=== PATIENT | female | born 1955 | race Caucasian/White ===

== ENCOUNTER 2022-12-02 07:40 | Day surgery (SDC) | payer OTHER, SELFPAY ==
[2022-12-02] MEDS: LACTATED RINGERS 1000 ML 1,000 ML 100 ML IV (06:20)
[2022-12-02 07:53] VITALS: BP 154/90; PULSE 73; RESP 16; TEMP 36.2; O2SAT 97; BMI 36.3
[2022-12-02] MEDS: SODIUM CHLORIDE 0.9 % (FLUSH) 10 ML SYRINGE IVF (08:03)
--- NOTE | 2022-12-02 09:22 | W.ANESCHARGE ---
Anesthesia Charges Start Date/Time Anesthesia Start Date: 12/02/22 Anesthesia Start Time: 10:02 Stop Date/Time Anesthesia Stop Date: 12/02/22 Anesthesia Stop Time: 10:44
[2022-12-02] MEDS: CEFAZOLIN 2 GM INJ IVP (10:12)
[2022-12-02] MEDS: BUPIVACAINE 0.25% 30 ML INJECTION (10:30)
[2022-12-02 10:40] VITALS: BP 124/72; PULSE 62; RESP 16; TEMP 36.9; O2SAT 95
[2022-12-02 10:45] VITALS: BP 120/73; PULSE 61; RESP 16; O2SAT 95
--- NOTE | 2022-12-02 10:45 | W.ANESCHARGE ---
Anesthesia Charges Start Date/Time Anesthesia Start Date: 12/02/22 Anesthesia Start Time: 10:02 Stop Date/Time Anesthesia Stop Date: 12/02/22 Anesthesia Stop Time: 10:44
--- NOTE | 2022-12-02 10:52 | PM.GSPRC ---
Operative Note Date of procedure: 12/02/22 Pre-op diagnosis: Lipoma of the right flank Post-op diagnosis: Same Type of Procedure: Excision of right flank lipoma Indications: Patient is a 67-year-old female presented to clinic with a growing lipoma of the right flank. Risks and benefits of operative intervention were discussed at length with the patient. Risks included but was not limited to: Bleeding, infection, risk of damage to surrounding structures, possible need for additional procedures, risk of recurrent and postoperative complications such as pneumonia, pulmonary emboli or VA. All questions and concerns were addressed with the patient agreeing to proceed. Procedure Description: After discussing the risks and benefits of the procedure, the patient signed informed consent.? The operative site was marked and the patient was brought to the operating room and placed on the operating table in lateral decubitus position.? Care was taken to pad the patient's pressure points.?? The patient was then given sedation by anesthesia.?? The operative site was then prepped and draped in the usual sterile fashion.? A time-out was then performed. The surgical field was anesthetized with 1% lidocaine and 0.25% Marcaine. A transverse incision was made over the marked area. Dissection was carried down through subcutaneous tissue. A welling capsulated lipomatous mass was encountered. This was circumferentially dissected out bluntly and with electrocautery. The mass was removed in its entirety in measured 8 cm x 5 cm in size. The resulting cavity was examined and hemostasis assured with electrocautery. The area was gently irrigated with normal saline. The incision was then closed in layers with interrupted 3 0 Vicryl and running 4-0 Monocryl stitch. Dermabond was applied. ? The patient was then woken and transported to the recovery area in stable condition. ? The patient tolerated the procedure well. Findings: Lipoma of the right flank Anesthesia: MAC and local Surgeon: Kenisha Lobo MD Estimated blood loss (mL): 2 Additional Specimen Information: Lipoma of the right flank Condition: stable Disposition: same day
[2022-12-02 11:00] VITALS: BP 120/72; PULSE 60; RESP 16; O2SAT 93
== END 2022-12-02 11:30 | disposition home or self-care (01) ==
PROVIDERS: PCP Family Medicine; Visit Provider Surgery
PROC: (CPT 21931; principal; 2022-12-02 09:45)
DX: D17.1 Benign lipomatous neoplasm of skin and subcutaneous tissue of trunk (principal)
CPT/HCPCS: 21931; 00400; 88304; J0690; J1100; J2250; J2405; J2704; J3010; J3490; J7120